=== PATIENT | male | born 1965 | race Caucasian/White ===

== ENCOUNTER 2016-06-06 02:37 | Emergency (ER) | payer OTHER ==
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
--- NOTE | ~2016-06-06 | ER ---
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 ROOM: [place] [address] LOCATION: [facility] ADMIT DATE: 06/06/2016 ER/Outpatient Report DISCHARGE DATE: 06/06/2016 FAMILY PHYSICIAN: Physician, Unknown ATTENDING PHYSICIAN: Tod Payton ADDENDUM: This is an addendum to a prior ER note. CRITICAL CARE TIME: Fifty-eight minutes of critical care time was spent directly on this patient, not including direction of CPR. Critical care time consisted of patient evaluation, formulating plan, discussion with consultants, EMS direction, obtaining history, speaking with the family, and initiating transfer. The patient was found to be markedly acidotic and required intervention by Dr. Franklin. He had multiple rhythm changes in the emergency department after obtaining ROSC. He remained very hemodynamically unstable, and ultimately, we did have a discussion with goals of care for the patient with his father. It had appeared that we reached a point of medical futility, and we could not in fact keep up with his metabolic needs. Care was ultimately ceased, and the patient was ultimately pronounced here. All questions were answered to the best of our ability. The patient will be taken to the morgue. MD VAN ESCALANTE/elsa /[id number] d: 06/06/161849 t: 06/18/16 0927, OUTPATIENT REPORT
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
[2016-06-06 03:07] LABS: HEMATOCRIT 42.6 % (37.0-53.0); HEMOGLOBIN 13.6 g/dL (12.0-17.0); MCH 31.1 pg (27.0-34.0); MCHC 31.9 gm/dL (32.0-36.5); MCV 97.3 fl (83.0-98.0); MPV 10.1 fl (9.4-12.4); PLATELET COUNT 213 K/uL (150-450); RBC 4.38 M/uL (4.00-6.00); WBC 10.2 K/uL (4.0-11.0)
[2016-06-06 03:17] LABS: INR - (THERAPEUTIC) 1.1 (0.9-1.1); PTT 46 SECONDS (25-32)
[2016-06-06 03:25] LABS: PCO2 107 mmHg (35-45)
[2016-06-06 03:26] LABS: BICARBONATE 19.1 mmol/L (18.0-23.0); PO2 35 mmHg (80-90)
[2016-06-06 03:27] LABS: POTASSIUM 3.1 mEq/L (3.7-5.1); SODIUM 142 mEq/L (135-145)
[2016-06-06 03:29] LABS: ANION GAP 19.1 (10.0-19.0); BLOOD UREA NITROGEN 20 mg/dL (6-24); CHLORIDE 104 mMol/L (96-110); CREATININE 1.9 mg/dL (0.6-1.3); ESTIMATED GFR (MDRD EQUATION) 39
[2016-06-06 04:04] LABS: BILIRUBIN URINE NEGATIVE (NEGATIVE); BLOOD URINE NEGATIVE /UL (NEGATIVE); COLOR URINE YELLOW (YELLOW); GLUCOSE URINE NEGATIVE (NEGATIVE); KETONE URINE NEGATIVE (NEGATIVE); LEUKOCYTES URINE 25 /UL (NEGATIVE); NITRITE URINE NEGATIVE (NEGATIVE); PROTEIN URINE NEGATIVE (NEGATIVE); SPEC GRAVITY URINE 1.015 (1.003-1.035); TURBIDITY URINE CLEAR (CLEAR); UROBILINOGEN URINE NORMAL (NORMAL)
[2016-06-06 04:27] LABS: RBC URINE NEGATIVE #/HPF (NEGATIVE); WBC URINE 0-2 #/HPF (NEGATIVE)
[2016-06-06 04:28] LABS: BACTERIA URINE NEGATIVE (NEGATIVE); EPITHELIAL URINE RARE #/HPF (NEGATIVE); MUCUS URINE 1+ (NEGATIVE)
[2016-06-06 05:16] LABS: ABSOLUTE NEUTROPHIL CT (ANC) 3.5 K/uL (1.4-9.0); BANDED NEUTROPHIL # 0.6 K/uL (0.0-0.1); BANDED NEUTROPHILS % 6 %; LYMPHOCYTE # 5.3 K/uL (0.8-4.0); LYMPHOCYTE % 52 %; MONOCYTE # 1.2 K/uL (0.0-1.0); SEGMENTED NEUTROPHIL # 2.9 K/uL (1.4-9.0); SEGMENTED NEUTROPHIL % 28 %
[2016-06-06 05:20] LABS: BICARBONATE 19.6 mmol/L (18.0-23.0); PCO2 61 mmHg (35-45); PO2 56 mmHg (80-90); POTASSIUM 4.2 mEq/L (3.7-5.1); SODIUM 141 mEq/L (135-145)
== END 2016-06-06 05:40 | disposition expired ==
LOC: GACC 02:37 → EDBD 02:37 → GACC 05:40
PROVIDERS: Emergency Medicine
DX: I46.9 Cardiac arrest, cause unspecified (principal); S02.40CA Maxillary fracture, right side, initial encounter for closed fracture; V49.9XXA Car occupant (driver) (passenger) injured in unspecified traffic accident, initial encounter; S12.200A Unspecified displaced fracture of third cervical vertebra, initial encounter for closed fracture; S12.500A Unspecified displaced fracture of sixth cervical vertebra, initial encounter for closed fracture; S22.43XA Multiple fractures of ribs, bilateral, initial encounter for closed fracture; S27.329A Contusion of lung, unspecified, initial encounter; S27.1XXA Traumatic hemothorax, initial encounter; E87.2 Acidosis
CPT/HCPCS: G0390; G0480; J0171; J2370; J7030; J7060; P9016; P9045

== ENCOUNTER → 2016-06-06 | Outpatient (CLI) | payer SELFPAY | END | disposition disaster alternative care site (69) | LOC: GAMB 02:19 | DX: I46.9 Cardiac arrest, cause unspecified (principal) ==